=== PATIENT | male | born 1990 | race Caucasian/White ===

== ENCOUNTER 2022-01-15 18:36 | Emergency (ER) | payer MEDICAID ==
[2022-01-15] MEDS ORDERED: Ciprofloxacin 500 MG Tab PO ONE (19:48)
== END 2022-01-15 21:12 | disposition home or self-care (01) ==
LOC: JP.ED 18:36
DX: N45.1 Epididymitis (principal); J45.909 Unspecified asthma, uncomplicated; Z72.0 Tobacco use
CPT/HCPCS: 76870; 93976; 99284; A9270

== ENCOUNTER 2022-05-05 16:51 | Emergency (ER) | payer MEDICAID ==
[2022-05-05] MEDS ORDERED: Triamcinolone Acetonide 40 MG/ML 1 ML SDV IM ONE (17:19)
[2022-05-05] MEDS ORDERED: Triamcinolone Acetonide 40 MG/ML 1 ML SDV ONE (17:26)
== END 2022-05-05 17:45 | disposition home or self-care (01) ==
LOC: JP.ED 16:51
DX: J32.9 Chronic sinusitis, unspecified (principal); H66.91 Otitis media, unspecified, right ear
CPT/HCPCS: 96372; 99283; J3301

== ENCOUNTER 2022-05-16 | Emergency (ER) | payer MEDICAID | END 2022-05-16 01:33 | disposition home or self-care (01) | LOC: JP.ED | DX: J32.9 Chronic sinusitis, unspecified (principal); J45.909 Unspecified asthma, uncomplicated; F17.210 Nicotine dependence, cigarettes, uncomplicated | CPT/HCPCS: 36415; 85025; 86140; 99283 ==

== ENCOUNTER 2022-07-08 18:57 | Emergency (ER) | payer MEDICAID ==
[2022-07-08] MEDS ORDERED: Ibuprofen 400 MG Tab PO ONE (20:05)
[2022-07-08] MEDS ORDERED: Cephalexin 250 MG Cap PO ONE (20:06)
== END 2022-07-08 20:40 | disposition home or self-care (01) ==
LOC: JP.ED 18:57
DX: L03.114 Cellulitis of left upper limb (principal); J45.909 Unspecified asthma, uncomplicated; Z72.0 Tobacco use
CPT/HCPCS: 99283; A9270

== ENCOUNTER 2022-07-25 18:23 | Emergency (ER) | payer MEDICAID | END 2022-07-25 20:45 | disposition home or self-care (01) | LOC: JP.ED 18:23 | DX: J00 Acute nasopharyngitis [common cold] (principal); J45.909 Unspecified asthma, uncomplicated; F17.210 Nicotine dependence, cigarettes, uncomplicated | CPT/HCPCS: 99283 ==

== ENCOUNTER 2022-07-28 23:21 | Emergency (ER) | payer MEDICAID | END 2022-07-29 00:57 | disposition home or self-care (01) | LOC: JP.ED 23:21 | DX: J32.9 Chronic sinusitis, unspecified (principal); J45.909 Unspecified asthma, uncomplicated; E66.9 Obesity, unspecified; Z68.41 Body mass index [BMI] 40.0-44.9, adult; Z72.0 Tobacco use | CPT/HCPCS: 99283 ==

== ENCOUNTER 2022-08-09 11:24 | Emergency (ER) | payer MEDICAID | END 2022-08-09 13:44 | disposition home or self-care (01) | LOC: JP.ED 11:24 | DX: M54.6 Pain in thoracic spine (principal); J45.909 Unspecified asthma, uncomplicated; E66.9 Obesity, unspecified; Z68.39 Body mass index [BMI] 39.0-39.9, adult; Z72.0 Tobacco use | CPT/HCPCS: 99283 ==

== ENCOUNTER 2022-11-19 06:41 | Emergency (ER) | payer MEDICAID | END 2022-11-19 07:34 | disposition home or self-care (01) | LOC: JP.ED 06:41 | DX: K08.89 Other specified disorders of teeth and supporting structures (principal); F17.210 Nicotine dependence, cigarettes, uncomplicated | CPT/HCPCS: 99282 ==

== ENCOUNTER 2022-11-21 20:12 | Emergency (ER) | payer MEDICAID | END 2022-11-21 21:32 | disposition home or self-care (01) | LOC: JP.ED 20:12 | DX: K04.7 Periapical abscess without sinus (principal); J45.909 Unspecified asthma, uncomplicated; E66.9 Obesity, unspecified; Z68.41 Body mass index [BMI] 40.0-44.9, adult; F17.210 Nicotine dependence, cigarettes, uncomplicated | CPT/HCPCS: 99282 ==

== ENCOUNTER 2023-01-22 19:49 | Emergency (ER) | payer MEDICAID ==
[2023-01-22 21:14] LABS: INFLUENZA A NAA NEGATIVE (NEGATIVE); INFLUENZA B NAA NEGATIVE (NEGATIVE); RESPIRATORY SYNCYTIAL VIR NAA NEGATIVE (NEGATIVE)
[2023-01-22 21:15] LABS: CORONAVIRUS COVID-19 NAA POSITIVE (NEGATIVE)
[2023-01-22] MEDS ORDERED: Ketorolac 30 MG/ML SDV IM ONE (21:34)
== END 2023-01-22 22:06 | disposition home or self-care (01) ==
LOC: JP.ED 19:49
DX: U07.1 COVID-19 (principal); J45.909 Unspecified asthma, uncomplicated; F17.210 Nicotine dependence, cigarettes, uncomplicated; E66.9 Obesity, unspecified
CPT/HCPCS: 0241U; 96372; 99284; J1885

== ENCOUNTER 2024-03-07 20:37 | Emergency (ER) | payer SELFPAY | END 2024-03-07 22:22 | disposition home or self-care (01) | LOC: JP.ED 20:37 | DX: M79.602 Pain in left arm (principal); F17.210 Nicotine dependence, cigarettes, uncomplicated; Z86.16 Personal history of COVID-19 | CPT/HCPCS: 99283 ==

== ENCOUNTER 2025-01-19 04:01 | Emergency (ER) | payer MEDICAID | END 2025-01-19 05:24 | disposition home or self-care (01) | LOC: JP.ED 04:01 | DX: J21.9 Acute bronchiolitis, unspecified (principal); E66.9 Obesity, unspecified; J45.909 Unspecified asthma, uncomplicated; Z86.16 Personal history of COVID-19; Z87.891 Personal history of nicotine dependence | CPT/HCPCS: 94640; 99283; J7620; A9270-GY ==